=== PATIENT | female | born 1945 | race Caucasian/White ===

== ENCOUNTER 2017-11-18 11:27 | Day surgery (SDC) | payer OTHER ==
[~2017-11-18] VITALS: Ht 162.6 cm; Wt 69.9 kg
[~2017-11-18 11:27] MED LIST: ALBU90OI61 INH; ALPR.25 PO; Budeprion Xl300 MG PO; CENTRUM SILVER1 EAC2 PO; COMBIVENT RESPIM4 GM INH; ERGO400 PO; ESOM20 PO; FISH1000 PO; FLUSAL2505 INH; GABA300; L-LYSINE500 MG PO; LEVSOD100 PO; METO10; METO10 PO; OMEG1CAP30 PO; PARO20 PO; PROBIOTIC1 EAC1 PO; VICODIN 5-3001 EACH PO
[2017-11-18] MEDS ORDERED: COMBIVENT RESPIM4 GM INH (15:38)
[2017-11-18] MEDS ORDERED: GABA300 PO (15:39)
== END 2017-11-18 14:13 | disposition home or self-care (01) ==
LOC: ORSCSDS 11:27
PROVIDERS: Ophthalmology
PROC: 08RJ3JZ Replacement of Right Lens with Synthetic Substitute, Percutaneous Approach (ICD-10-PCS; principal; 2017-11-18 13:00)
DX: H25.11 Age-related nuclear cataract, right eye (principal); I10 Essential (primary) hypertension; J44.9 Chronic obstructive pulmonary disease, unspecified; K21.9 Gastro-esophageal reflux disease without esophagitis; F17.210 Nicotine dependence, cigarettes, uncomplicated; Z79.899 Other long term (current) drug therapy
CPT/HCPCS: J2250; J3010; J7040; V2632

== ENCOUNTER 2018-02-17 13:05 | Day surgery (SDC) | payer OTHER ==
[~2018-02-17] VITALS: Ht 162.6 cm; Wt 68.5 kg
[~2018-02-17 13:05] MED LIST changes: +GABA300 PO
== END 2018-02-17 16:05 | disposition home or self-care (01) ==
LOC: ORSCSDS 13:05
PROVIDERS: Ophthalmology
PROC: 08RK3JZ Replacement of Left Lens with Synthetic Substitute, Percutaneous Approach (ICD-10-PCS; principal; 2018-02-17 14:30)
DX: H25.12 Age-related nuclear cataract, left eye (principal); J44.9 Chronic obstructive pulmonary disease, unspecified; E03.9 Hypothyroidism, unspecified; Z79.899 Other long term (current) drug therapy; Z99.81 Dependence on supplemental oxygen
CPT/HCPCS: J2250; J3010; J7120; V2632

== ENCOUNTER 2019-03-17 10:59 | Day surgery (SDC) | payer OTHER ==
[~2019-03-17] VITALS: Ht 162.6 cm; Wt 65.7 kg
[~2019-03-17 10:59] MED LIST changes: +ALBU90OI INH; +BUPR150ERA PO; +FLUT1DIS5 INH; +HYDR1TAB94 PO; +OMEPRAZOLE20 MG PO; +PAXIL40 MG PO; +Premarin0.3 MG PO
--- NOTE | 2019-03-17 12:50 | NUR ---
03/17/19 1250 Zina Boyer DILITATION WITH NILDA 60 ALSO.
--- NOTE | 2019-03-17 13:22 | NUR ---
03/17/19 1322 Zina Boyer PT HAS WHEEZES T/O. PT PRESENTED TO PRE OP WITH THESE WHEEZES. DR. RYAN NOTIFIED. DR RYAN NOTIFIED. OK TO DISCHARGE PER DR RYAN LONG OXYGEN SATURATION IS STABLE. O2 AT 94% RA. VSS. OK TO DISCHARGE.
== END 2019-03-17 13:20 | disposition home or self-care (01) ==
LOC: ORSCSDS 10:59
PROVIDERS: Internal Medicine Gastroenterology
PROC: 0DB58ZX Excision of Esophagus, Via Natural or Artificial Opening Endoscopic, Diagnostic (ICD-10-PCS; principal; 2019-03-17 12:15)
PROC: 0D758ZZ Dilation of Esophagus, Via Natural or Artificial Opening Endoscopic (ICD-10-PCS; principal; 2019-03-17 12:15)
DX: R13.10 Dysphagia, unspecified (principal); K21.9 Gastro-esophageal reflux disease without esophagitis; K22.70 Barrett's esophagus without dysplasia; J44.9 Chronic obstructive pulmonary disease, unspecified; G47.33 Obstructive sleep apnea (adult) (pediatric); I10 Essential (primary) hypertension; Z87.891 Personal history of nicotine dependence; Z79.899 Other long term (current) drug therapy
CPT/HCPCS: 88305; J2704; J7120

== ENCOUNTER 2019-06-09 10:34 | Day surgery (SDC) | payer OTHER ==
[~2019-06-09] VITALS: Ht 162.6 cm; Wt 64.7 kg
== END 2019-06-09 13:11 | disposition home or self-care (01) ==
LOC: ORSCSDS 10:34
PROVIDERS: Internal Medicine Gastroenterology
PROC: 0DBK8ZX Excision of Ascending Colon, Via Natural or Artificial Opening Endoscopic, Diagnostic (ICD-10-PCS; principal; 2019-06-09 12:00)
DX: Z12.11 Encounter for screening for malignant neoplasm of colon (principal); Z86.010 Personal history of colon polyps; D12.2 Benign neoplasm of ascending colon; K57.30 Diverticulosis of large intestine without perforation or abscess without bleeding; K64.8 Other hemorrhoids; K64.4 Residual hemorrhoidal skin tags; I10 Essential (primary) hypertension; J44.9 Chronic obstructive pulmonary disease, unspecified; G47.33 Obstructive sleep apnea (adult) (pediatric); K21.9 Gastro-esophageal reflux disease without esophagitis; Z79.899 Other long term (current) drug therapy
CPT/HCPCS: 88305; J2250; J2704; J7120

== ENCOUNTER → 2020-05-28 | Outpatient (CLI) | payer OTHER ==
[2020-05-29 10:42] LABS: Candida species (DNA Probe) Negative (NEGATIVE); G. vaginalis (DNA Probe) Negative (NEGATIVE); T. vaginalis (DNA Probe) Negative (NEGATIVE)
== END | disposition home or self-care (01) ==
LOC: LAB SHORT 17:53 → LAB 17:53
PROVIDERS: Physician Assistant
DX: N89.8 Other specified noninflammatory disorders of vagina (principal)
CPT/HCPCS: 87480; 87510; 87660

== ENCOUNTER 2023-10-05 18:15 | Inpatient (IN) | payer MEDICARE ==
[~2023-10-05] VITALS: Ht 165.1 cm; Wt 64.5 kg
[2023-10-08 08:03] VITALS: BP 167/70
== END 2023-10-08 14:50 | disposition home health service (06) | DRG 871 ==
LOC: ER 18:15 → PCU 22:12 → MEDS 10-07 16:25
PROVIDERS: ADMIT Internal Medicine
PROC: 5A0935A Assistance with Respiratory Ventilation, Less than 24 Consecutive Hours, High Flow/Velocity Cannula (ICD-10-PCS; principal; 2023-10-05)
PROC: 3E03329 Introduction of Other Anti-infective into Peripheral Vein, Percutaneous Approach (ICD-10-PCS; 2023-10-05)
DX: A41.9 Sepsis, unspecified organism (principal); J18.9 Pneumonia, unspecified organism; J96.21 Acute and chronic respiratory failure with hypoxia; J96.22 Acute and chronic respiratory failure with hypercapnia; J44.1 Chronic obstructive pulmonary disease with (acute) exacerbation; J44.0 Chronic obstructive pulmonary disease with (acute) lower respiratory infection; R65.20 Severe sepsis without septic shock; F41.8 Other specified anxiety disorders; G62.9 Polyneuropathy, unspecified; E03.9 Hypothyroidism, unspecified; K21.9 Gastro-esophageal reflux disease without esophagitis; Z79.51 Long term (current) use of inhaled steroids; Z79.890 Hormone replacement therapy; Z98.1 Arthrodesis status; Z87.891 Personal history of nicotine dependence; Z99.81 Dependence on supplemental oxygen; Z88.0 Allergy status to penicillin

== ENCOUNTER 2024-05-31 11:43 | Inpatient (IN) | payer MEDICARE ==
[~2024-05-31] VITALS: Ht 152.4 cm; Wt 50.0 kg
[~2024-05-31 11:43] MED LIST changes: +ATOR40TA PO; +Acetaminophen650 M1 PO; +BUPR150ER PO; +CEFP200 PO; +DONEPEZIL HCL10 M1 PO; +ESTRADIOL1 EAC2 TOP; +HYDHCL25 PO; +LEVSOD75 PO; +LOSA50 PO; +Norco 5-325 Ta1 EACH PO; +VISBIOME 112.51 EACH PO
[2024-05-31] MEDS ORDERED: MethylPREDNISolone Sod Succ 125 MG Vial IV ONE (11:55)
[2024-05-31] MEDS ORDERED: Albuterol 2.5 MG/3 ML VIAL INH SCH (11:55)
[2024-05-31] MEDS ORDERED: FentaNYL Citrate 50 MCG/ML 2 ML Injection IV ONE ×2 (12:00→14:20)
[2024-05-31 12:08] LABS: Bicarbonate Venous 31.9 mmol/L (24.0-30.0); PCO2 Venous 70.1 mmHg (38-42); pH Blood Venous 7.34 (7.34-7.37)
[2024-05-31 12:09] LABS: BASOPHILS ABSOLUTE AUTO 0.04 K/mm3 (0.00-0.23); BASOPHILS PERCENT AUTO 0 % (0-2); EOSINOPHILS ABSOLUTE AUTO 0.34 K/mm3 (0.00-0.68); EOSINOPHILS PERCENT AUTO 2 % (0-6); Hematocrit 46.5 % (33.0-51.0); Hemoglobin 14.8 g/dL (11.5-16.0); IMMATURE GRAN ABSOLUTE AUTO 0.06 K/mm3 (0.00-0.10); IMMATURE GRAN PERCENT AUTO 0 % (0-1); LYMPHOCYTES ABSOLUTE AUTO 3.72 K/mm3 (0.84-5.20); LYMPHOCYTES PERCENT AUTO 25 % (21-46); MONOCYTES ABSOLUTE AUTO 1.19 K/mm3 (0.16-1.47); MONOCYTES PERCENT AUTO 8 % (4-13); Mean Corpuscular HGB 29.2 pg (26.0-34.0); Mean Corpuscular HGB Conc 31.8 g/dL (31.5-36.5); Mean Corpuscular Volume 92 fL (80-100); Mean Platelet Volume 9.9 fL (9.1-12.4); NEUTROPHILS ABSOLUTE AUTO 9.59 K/mm3 (1.96-9.15); NEUTROPHILS PERCENT AUTO 64 % (41-73); Platelet Count 337 K/mm3 (150-400); RDW Standard Deviation 51.1 fL (35.1-46.3); Red Blood Cell Count 5.07 M/mm3 (3.80-5.20); White Blood Cell Count 14.94 K/mm3 (4.00-11.30)
[2024-05-31 12:30] LABS: Albumin, Blood 3.4 g/dL (3.4-5.0); Albumin/Globulin Ratio 0.7 (0.8-1.8); Bilirubin, Total 0.3 mg/dL (0.1-1.0); Calcium, Blood 9.8 mg/dL (8.5-10.1); Creatinine, Blood 0.55 mg/dL (0.40-1.00); Globulin, Blood 5.1 g/dL (2.2-4.0); Potassium, Blood 3.5 mmol/L (3.5-5.5); Total Protein, Blood 8.5 g/dL (6.4-8.2)
[2024-05-31] MEDS ORDERED: Oseltamivir Phosphate 75 MG Cap PO ONE ×2 (12:55→21:00)
[2024-05-31] MEDS ORDERED: HYDROcodone 5-APAP 325 TAB PO PRN (15:20)
[2024-05-31] MEDS ORDERED: FLU VACC TS2024-25(6MOS UP)/PF 45 MCG/0.5 ML SYRINGE IM ONE (15:20)
[2024-05-31] MEDS ORDERED: Ondansetron HCl 2 MG / ML 2ML Vial IV PRN (15:25)
[2024-05-31] MEDS ORDERED: Polyethylene Glycol 3350 17 gm PO PRN (15:25)
[2024-05-31] MEDS ORDERED: CefTRIAXone Sodium 1,000 MG in NS 100 ML IV SCH (16:00)
[2024-05-31] MEDS ORDERED: MethylPREDNISolone Sod Succ 125 MG Vial IV SCH (16:00)
[2024-05-31 16:55] VITALS: BP 174/88
[2024-05-31] MEDS ORDERED: buPROPion HCL 150 MG TAB.SR.12H PO SCH (17:02)
--- NOTE | 2024-05-31 17:55 | NUR ---
ADMISSION NOTE: PATIENT ARRIVED AT THE UNIT VIA GURNEY AT 1655 ACCOMPANIED BY FAMILY. PATIENT TRANSFERRED ONTO BED AND SETTLED IN ROOM. SHE WAS ON NASAL CANNUAL ON 4 L AND SATURATING WELL AT 94% SPO2. PATIENT PLACED ON PUREWICK FOR OXYGEN CONSERVATION, CALL LIGHT PROVIDED, NO SIGNS OR SYMPTOMS OF DISTRESS. PLAN OF CARE ONGOING. CALL MADE TO DR. SHILOH BARTHOLOMEW CLEAR LIQUID DIET AND HE STATES THAT PATIENT MAY ADVANCE TOLERATED-TO REGULAR. PATIENT TOLERATED CLEAR LIQUID DINNER TRAY AT THIS TIME MAINTAIN OXYGEN ABOVE 90%.
--- NOTE | 2024-05-31 20:51 | NUR ---
ASSUMPTION OF CARE: ROLDANLOUIE CRISS NOT TOLERATING BIPAP, RT NOTIFIED TO HELP WITH MASK FITTING AND POSSIBLE NEED FOR CHANGE. SPOKE WITH PATIENT ABOUT INHALERS, MED CLAIM HISTORY SHOWED CRISTIAN HIGUERA, WILL INFORM RESDIENT WHEN HE STOPS BY. PATIENT IN NO ACUTE DISTRESS. A/O X 4. BIPAP SETTINGS OF 12/6 AT 40%. DENIES CHEST PAIN PRESSURE OR SOB. MILD SYSTOLIC HTN 150, IMPROVING FROM PREVIOUS 170'S. PATIENT ABLE TO REST, REPOSITIONED, TOLERATED MEDS PO WITH WATER. CRISS ON 3.5L. PUREWICK IN TO HELP WITH EXERTION DYSPNEA. PATIENT EDUCATED. BED ALARM FOR SAFETY. PLAN OF CARE CONTINUES.
[2024-05-31] MEDS ORDERED: Lactobacil 2-S.Thermo-Bifido 1 1 Cap PO SCH (21:00)
[2024-05-31] MEDS ORDERED: Donepezil HCl 5 MG Tab PO SCH (21:00)
[2024-05-31] MEDS ORDERED: Docusate Sodium/Senna 1 Tab PO SCH (21:00)
[2024-05-31] MEDS ORDERED: Gabapentin 300 MG Cap PO SCH (21:00)
[2024-05-31] MEDS ORDERED: Ipratropium/Albuterol SulF 2.5-0.5MG/3 ML Amp INH SCH (21:50)
[2024-05-31] MEDS ORDERED: Mometasone/Formoterol MDI 100/5 mcg 13 GM INH SCH (21:50)
[2024-05-31] MEDS ORDERED: Albuterol 2.5 MG/3 ML VIAL INH PRN (21:50)
[2024-05-31 22:56] VITALS: BP 158/85
[2024-06-01 03:39] VITALS: BP 158/75
[2024-06-01 04:12] LABS: Base Excess Venous 16.3 mmol/L; Bicarbonate Venous 37.2 mmol/L (24.0-30.0); PCO2 Venous 61.6 mmHg (38-42); pH Blood Venous 7.43 (7.34-7.37)
--- NOTE | 2024-06-01 05:15 | NUR ---
EOS: NO SIGNIFICANT CHANGES FORM ASSUMPTION, MINIMALLY WORE BIAP ~3-4 HOURS FOR THIS RN DUE TO DISCOMFORT. OVERALL APPEARS TO BE IMPROVING, ONLY CONCERN WOULD BE TO START AM [place] IF LABS ALLOW, SYSTOLICS IN THE 150'S ON MED REC NOT SCHEDULED OR IN MAR. AM LABS OBTAINED TO ADD ON, SHE ONLY HAD A VBG ORDERED. RESIDENT NOTIFIED OF VBG, AWAITING INSTRUCTIONS. NO OTHER CONCERNS STILL DENIES CHEST PAIN PRESSURE SPO2 >92%. PLAN OF CARE CONTINUES.
[2024-06-01 05:16] LABS: BASOPHILS ABSOLUTE AUTO 0.01 K/mm3 (0.00-0.23); BASOPHILS PERCENT AUTO 0 % (0-2); EOSINOPHILS PERCENT AUTO 0 % (0-6); Hematocrit 38.9 % (33.0-51.0); Hemoglobin 12.6 g/dL (11.5-16.0); IMMATURE GRAN ABSOLUTE AUTO 0.04 K/mm3 (0.00-0.10); IMMATURE GRAN PERCENT AUTO 1 % (0-1); LYMPHOCYTES ABSOLUTE AUTO 0.85 K/mm3 (0.84-5.20); LYMPHOCYTES PERCENT AUTO 11 % (21-46); MONOCYTES ABSOLUTE AUTO 0.27 K/mm3 (0.16-1.47); MONOCYTES PERCENT AUTO 4 % (4-13); Mean Corpuscular HGB 29.3 pg (26.0-34.0); Mean Corpuscular HGB Conc 32.4 g/dL (31.5-36.5); Mean Corpuscular Volume 91 fL (80-100); NEUTROPHILS ABSOLUTE AUTO 6.51 K/mm3 (1.96-9.15); NEUTROPHILS PERCENT AUTO 85 % (41-73); Platelet Count 247 K/mm3 (150-400); RDW Standard Deviation 49.7 fL (35.1-46.3); White Blood Cell Count 7.68 K/mm3 (4.00-11.30)
[2024-06-01 05:35] LABS: Bun/Creatinine Ratio 38.2 (12.0-20.0); Calcium, Blood 9.3 mg/dL (8.5-10.1); Creatinine, Blood 0.52 mg/dL (0.40-1.00); Potassium, Blood 3.6 mmol/L (3.5-5.5)
[2024-06-01] MEDS ORDERED: Levothyroxine Sodium 0.075 MG Tab PO SCH (06:00)
[2024-06-01] MEDS ORDERED: Omeprazole 20 MG CapCR PO SCH (06:00)
[2024-06-01 08:00] VITALS: BP 163/83
[2024-06-01] MEDS ORDERED: PARoxetine HCl 20 MG Tab PO SCH (09:00)
[2024-06-01] MEDS ORDERED: Oseltamvir Phosphate 30 MG Cap PO SCH (09:00)
[2024-06-01] MEDS ORDERED: Enoxaparin 30 MG/0.3 ML SYR SC SCH (09:00)
[2024-06-01] MEDS ORDERED: Cholecalciferol 1000 Unit Tablet (=25MCG) PO SCH (09:00)
[2024-06-01 11:48] VITALS: BP 164/79
--- NOTE | 2024-06-01 15:46 | NUR ---
CALLED AND GAVE REPORT TO TRUDI DESAI ON MEDICAL FOR PATIENT TO GO TO ROOM 342. ALSO CALLED DR. MATAMOROS ABOUT ORDERED PATIENT'S HOME BLOOD PRESSURE MEDICATIONS ADN A PRN. ALSO CALLED PATIENT'S DAUGHTER OLGA AND NOTIFIED HER OF TRANSFER.
[2024-06-01] MEDS ORDERED: HydrALAZINE HCl 20 MG / ML 1ML Vial IV PRN (15:50)
[2024-06-01 15:56] VITALS: BP 152/75
[2024-06-01] MEDS ORDERED: Losartan Potassium 25 MG Tab PO SCH (16:00)
[2024-06-01 17:15] VITALS: BP 152/78
--- NOTE | 2024-06-01 17:48 | NUR ---
PT TRANSFERRED TO MED FLOOR THIS AFTERNOON. PT TALKATIVE, ON 3L O2 AND TO INCRREASE TO 6L O2 DURING AMBULATION. PT DENIES PAIN AT THIS TIME. DAUGHTER AND SON IN LAW IN ROOM TO VISIT THIS FORREST. NO NEW CONCERNS AT THIS TIME. BED IN LOW POSITION, CALL LITE IN REACH, CALLS APPROP
[2024-06-01 21:04] VITALS: BP 123/65
[2024-06-02 05:13] VITALS: BP 134/63
--- NOTE | 2024-06-02 06:04 | NUR ---
SHIFT SUMMARY PT ALERT AND ORIENTED TIMES 4 . ONE PERSON TRANSFER ASSIST. PT IS ON 3L O2. PT HAS NO SKIN ISSUES. PT IS COOPERATIVE WITH CARE. BED IN LOW POSITION, CALL LIGHT WITHIN REACH, RAILS TIMES 2.
[2024-06-02 07:16] VITALS: BP 139/60
[2024-06-02] MEDS ORDERED: MethylPREDNISolone Sod Succ 125 MG Vial IV SCH (09:00)
[2024-06-02 15:33] VITALS: BP 148/82
--- NOTE | 2024-06-02 18:40 | NUR ---
PATIENT IS ALERT AND ORIENTED AND COOPERATIVE WITH CARE. PLAN IS TO STAY ANOTHER NIGHT BECUASE HER OXYGEN NEEDS WERE HIGH DURING THE HOME O2 EVAL THIS AFTERNOON. 3L AT REST AND 6L AT 89% WITH EXERTION. PATIENT HAS BEEN RESTING BETWEEN MEALS. BM TODAY. UP TO THE BATHROOM. WILL CONTINUE TO MONITOR
[2024-06-02 20:21] VITALS: BP 134/63
--- NOTE | 2024-06-03 03:44 | NUR ---
SHIFT SUMM: PT IS A 79 YO FULL CODE WHO WAS ADMITTED FOR COPD EXACERBATION. PT IS IN ISO FOR INFLUENZA A AND IS A&OX4. PT USES 3L OF OXYGEN AT BASELINE BUT 6L ON EXERTION. PT IS A 1 PERSON SBA TO THE BATHROOM. PT HAS BEEN WORRIED ABOUT HER WHO LIVES AT [facility] AND IS HOPING TO GO HOME TODAY. PT HAS BEEN RESTING MOST OF THE SHIFT W/CALL LIGHT IN REACH AND IS COOPERATIVE W/CARE.
[2024-06-03 05:18] VITALS: BP 161/71
[2024-06-03 07:24] VITALS: BP 171/76
[2024-06-03] MEDS ORDERED: PredniSONE 20 MG Tab PO SCH (09:00)
[2024-06-03] MEDS ORDERED: DULERA 100 MCG/13 GM INH (12:26)
[2024-06-03] MEDS ORDERED: Prednisone20 MG PO (12:28)
[2024-06-03] MEDS ORDERED: DOXY100 PO (12:29)
--- NOTE | 2024-06-03 12:47 | NUR ---
DISCHARGE PT AOX4, COOPERATIVE, ABLE TO MAKE NEEDS KNOWN. ON 3L O2, INCREASE TO 6L O2 UPON EXERTION. THE RN CONTACTED [phone] 10 MINUTES BEFORE PT DISCHARGE FOR HOME O2 NEEDS. RECIPIENTS WERE VERY NICE AND SAID EVERYTHING WILL BE TAKEN CARE OF. THIS RN WENT OVER DISCHARGE INFORMATION WITH PT AND SON, SON TOOK DISCHARGE PAPERWORK WITH "PT BELONGING" BAD WITH OTHER BELONGING. JOHNY WHITMORE TRANSPORTED PT VIA WHEELCHAIR DOWN TO PT ENTRANCE. IV DC'D BY JOHNY WHITMORE.
== END 2024-06-03 12:47 | disposition home health service (06) | DRG 193 ==
LOC: ER 11:43 → ERHOLD 11:44 → MEDS 11:45 → PCU 11:45 → MEDS 06-01 16:17
PROVIDERS: Emergency Medicine; Internal Medicine; Physician Assistant; Student in an Organized Health Care Education/Training Program; ADMIT Internal Medicine
PROC: 5A09357 Assistance with Respiratory Ventilation, Less than 24 Consecutive Hours, Continuous Positive Airway Pressure (ICD-10-PCS; principal; 2024-05-31)
DX: J10.00 Influenza due to other identified influenza virus with unspecified type of pneumonia (principal); J96.21 Acute and chronic respiratory failure with hypoxia; J96.22 Acute and chronic respiratory failure with hypercapnia; J44.1 Chronic obstructive pulmonary disease with (acute) exacerbation; J44.0 Chronic obstructive pulmonary disease with (acute) lower respiratory infection; I10 Essential (primary) hypertension; G31.84 Mild cognitive impairment of uncertain or unknown etiology; G89.29 Other chronic pain; Z88.1 Allergy status to other antibiotic agents; F41.8 Other specified anxiety disorders; E03.9 Hypothyroidism, unspecified; G62.9 Polyneuropathy, unspecified; K22.70 Barrett's esophagus without dysplasia; Z90.710 Acquired absence of both cervix and uterus; Z98.1 Arthrodesis status; Z98.891 History of uterine scar from previous surgery; Z87.891 Personal history of nicotine dependence; Z79.899 Other long term (current) drug therapy; Z79.890 Hormone replacement therapy; Z79.891 Long term (current) use of opiate analgesic; Z90.49 Acquired absence of other specified parts of digestive tract; Z98.42 Cataract extraction status, left eye; Z98.41 Cataract extraction status, right eye
CPT/HCPCS: 36415; 71045; 80048; 80053; 82803; 83880; 84484; 85025; 93005; 93010; 94640; 94644; 94660; 94664; 94760; 94761; 94762; 96374; 96375; 96376; 97110; 97116; 97161; 99285-25; A9270; J0696; J1650; J2919; J3010; J7512

== ENCOUNTER → 2025-03-21 | Outpatient (CLI) | payer MEDICARE ==
[~2025-03-21] MED LIST changes: +DOXY100 PO; +DULERA 100 MCG/13 GM INH; +Prednisone20 MG PO
== END ==
LOC: LAB 12:27 → LAB SHORT 12:27
DX: R41.0 Disorientation, unspecified (principal)
CPT/HCPCS: 87086

== ENCOUNTER 2025-03-29 15:57 | Inpatient (IN) | payer MEDICARE ==
[~2025-03-29] VITALS: Ht 160 cm; Wt 45.6 kg
[2025-03-29] MEDS ORDERED: Ipratropium/Albuterol SulF 2.5-0.5MG/3 ML Amp INH ONE (16:20)
[2025-03-29] MEDS ORDERED: Albuterol 2.5 MG/3 ML VIAL INH SCH ×2 (16:25→18:10)
[2025-03-29 16:26] LABS: pH Blood Venous 7.41 (7.34-7.37)
[2025-03-29 16:38] LABS: BASOPHILS ABSOLUTE AUTO 0.02 K/mm3 (0.00-0.23); BASOPHILS PERCENT AUTO 0 % (0-2); EOSINOPHILS ABSOLUTE AUTO 0.12 K/mm3 (0.00-0.68); EOSINOPHILS PERCENT AUTO 1 % (0-6); Hematocrit 32.1 % (33.0-51.0); Hemoglobin 9.6 g/dL (11.5-16.0); IMMATURE GRAN ABSOLUTE AUTO 0.03 K/mm3 (0.00-0.10); IMMATURE GRAN PERCENT AUTO 0 % (0-1); LYMPHOCYTES ABSOLUTE AUTO 1.76 K/mm3 (0.84-5.20); LYMPHOCYTES PERCENT AUTO 21 % (21-46); MONOCYTES ABSOLUTE AUTO 0.80 K/mm3 (0.16-1.47); MONOCYTES PERCENT AUTO 10 % (4-13); Mean Corpuscular HGB Conc 29.9 g/dL (31.5-36.5); Mean Corpuscular Volume 98 fL (80-100); NEUTROPHILS ABSOLUTE AUTO 5.65 K/mm3 (1.96-9.15); NEUTROPHILS PERCENT AUTO 68 % (41-73); NRBC ABSOLUTE 0.00 K/mm3 (0.00-0.02); NRBC Auto 0.0 /100 WBC (0.0-0.2); Platelet Count 219 K/mm3 (150-400); RDW Coefficient Variation 14.2 % (11.7-14.2); RDW Standard Deviation 51.2 fL (35.1-46.3)
[2025-03-29 17:06] LABS: Magnesium, Blood 2.1 mg/dL (1.6-2.4)
[2025-03-29 17:20] LABS: Source, Urine Clean Catch
[2025-03-29 17:21] LABS: Influenza A, PCR NEGATIVE (NEGATIVE); Influenza B, PCR NEGATIVE (NEGATIVE); Resp Syncytial Virus, PCR NEGATIVE (NEGATIVE); SARS-Cov-2 (COVID-19) PCR, MMC NEGATIVE (NEGATIVE)
[2025-03-29 17:28] LABS: Bilirubin, Urine Neg (Neg); Color, Urine Yellow (P-Yellow); Glucose Qualitative, Urine Neg (Neg); Ketones, Urine 1+ (Neg); Leukocyte Esterase, Urine 1+ (Neg); Protein, Urine 2+ (Neg); Specific Gravity, Urine 1.015 (1.003-1.022); Urobilinogen, Urine NORM (Normal)
[2025-03-29 17:28] LABS: Alanine Aminotransfer (ALT/SGP 48 U/L (12-78); Albumin, Blood 3.0 g/dL (3.4-5.0); Albumin/Globulin Ratio 0.9 (0.8-1.8); Aspartate Aminotrans (AST/SGOT 32 U/L (12-37); Bilirubin, Total 0.2 mg/dL (0.1-1.0); Blood Urea Nitrogen 18 mg/dL (8-24); Calcium, Blood 9.2 mg/dL (8.5-10.1); Chloride, Blood 91 mmol/L (98-108); Creatinine, Blood 0.48 mg/dL (0.40-1.00); Globulin, Blood 3.3 g/dL (2.2-4.0); Glucose, Blood 107 mg/dL (70-99); Potassium, Blood 3.9 mmol/L (3.5-5.5); Sodium, Blood 139 mmol/L (136-145); Total Protein, Blood 6.3 g/dL (6.4-8.2)
[2025-03-29 17:29] LABS: Anion Gap Unable to Calculate mmol/L (3-11)
[2025-03-29 17:30] LABS: CO2, Blood >45 mmol/L (21-32)
[2025-03-29 17:42] LABS: Red Blood Cells, Urine 25-50 /hpf (0-2)
[2025-03-29] MEDS ORDERED: NS 250 ML IV SCH (18:10)
[2025-03-29] MEDS ORDERED: LORazepam 2 MG/ML 1ML Injection IV PRN (19:25)
[2025-03-29] MEDS ORDERED: Ipratropium/Albuterol SulF 2.5-0.5MG/3 ML Amp INH SCH (19:25)
[2025-03-29] MEDS ORDERED: Ondansetron HCl 2 MG / ML 2ML Vial IV PRN (19:30)
[2025-03-29] MEDS ORDERED: FLU VACC TS2025(65UP)/MF59C/PF 45 MCG/0.5 ML SYRINGE IM SCH (19:30)
[2025-03-29] MEDS ORDERED: NS 1,000 ML IV SCH (19:30)
[2025-03-29] MEDS ORDERED: Albuterol 2.5 MG/3 ML VIAL INH PRN (19:30)
[2025-03-29] MEDS ORDERED: Ondansetron HCl 2 MG / ML 2ML Vial IV ONE (20:00)
[2025-03-29] MEDS ORDERED: CefTRIAXone Sodium 1,000 MG in NS 100 ML IV SCH (20:00)
[2025-03-29] MEDS ORDERED: Metoclopramide HCl 5MG / ML 2ML Vial IV ONE (20:00)
[2025-03-29] MEDS ORDERED: ATOR40TA PO (20:20)
[2025-03-29] MEDS ORDERED: HYDHCL25 PO (20:21)
[2025-03-29 20:51] VITALS: BP 149/67
[2025-03-29] MEDS ORDERED: Lactobacil 2-S.Thermo-Bifido 1 1 Cap PO SCH (21:00)
[2025-03-29 21:09] LABS: pH Blood Venous 7.54 (7.34-7.37)
[2025-03-29 23:14] VITALS: BP 143/59
--- NOTE | 2025-03-30 01:59 | NUR ---
LATE ENTRY ASSUMPTION OF CARE REPORT RECIEVED FROM ANJANA DESAI. PT ARRIVED TO PCU AROUND 2050. PT WAS SLID FROM [facility] TO PCU BED. PT ALERT, ABLE TO ANSWER ORITNATION QUESTIONS, BUT VERY CONFUSED. HR IN THE 70'S, SR. SHE DENIES ANY CP/PRESSURE, NUMB/TINGLING, SBP STABLE. SpO2 >92% ON 4L VIA NC, PER PT 4L IS BASELINE FOR HER. SHE DENIES ANY SOB AT THIS TIME BUT DOES HAVE SOME WITH EXERTION. BREATHING EVEN AND UNLABORED. PUREWICK IN PLACE FOR INCONTINCE. PT RESTING IN BED AT THIS TIME. CALL LIGHT IN REACH.
[2025-03-30 03:31] VITALS: BP 152/65
[2025-03-30 03:53] LABS: pH Blood Venous 7.50 (7.34-7.37)
[2025-03-30 03:54] LABS: BASOPHILS ABSOLUTE AUTO 0.00 K/mm3 (0.00-0.23); BASOPHILS PERCENT AUTO 0 % (0-2); EOSINOPHILS ABSOLUTE AUTO 0.00 K/mm3 (0.00-0.68); EOSINOPHILS PERCENT AUTO 0 % (0-6); Hematocrit 34.1 % (33.0-51.0); Hemoglobin 10.3 g/dL (11.5-16.0); IMMATURE GRAN ABSOLUTE AUTO 0.02 K/mm3 (0.00-0.10); IMMATURE GRAN PERCENT AUTO 0 % (0-1); LYMPHOCYTES ABSOLUTE AUTO 0.52 K/mm3 (0.84-5.20); LYMPHOCYTES PERCENT AUTO 10 % (21-46); MONOCYTES ABSOLUTE AUTO 0.04 K/mm3 (0.16-1.47); MONOCYTES PERCENT AUTO 1 % (4-13); Mean Corpuscular HGB Conc 30.2 g/dL (31.5-36.5); Mean Corpuscular Volume 97 fL (80-100); NEUTROPHILS ABSOLUTE AUTO 4.43 K/mm3 (1.96-9.15); NEUTROPHILS PERCENT AUTO 88 % (41-73); NRBC ABSOLUTE 0.00 K/mm3 (0.00-0.02); NRBC Auto 0.0 /100 WBC (0.0-0.2); Platelet Count 201 K/mm3 (150-400); RDW Coefficient Variation 13.9 % (11.7-14.2); RDW Standard Deviation 49.8 fL (35.1-46.3)
[2025-03-30 04:18] LABS: Anion Gap 5.0 mmol/L (3-11); Blood Urea Nitrogen 15.0 mg/dL (8-24); CO2, Blood 43.0 mmol/L (21-32); Calcium, Blood 9.1 mg/dL (8.5-10.1); Chloride, Blood 92.0 mmol/L (98-108); Creatinine, Blood 0.4 mg/dL (0.40-1.00); Glucose, Blood 248.0 mg/dL (70-99); Magnesium, Blood 2.0 mg/dL (1.6-2.4); Potassium, Blood 3.9 mmol/L (3.5-5.5); Sodium, Blood 136.0 mmol/L (136-145)
--- NOTE | 2025-03-30 06:25 | NUR ---
SHIFT SUMMARY PT ALERT, ANSWERS ALL ORIENTATION QUESTIONS APPROPRIATELY BUT IS CONFUSED AT TIMES. PER REPORT FROM ER FAMILY STATES PT CONFUSED AT BASELINE. BED ALARM ON. HR IN THE 70'S, SR. SHE DENIES ANY CP/PRESSURE, NUMB/TINGLING, SBP STABLE. SpO2 >92% ON 4L VIA NC. PER PT 4L IS BASELINE FOR HER. DURING NIGHT PT DID TAKE NC OFF AND DESATED TO LOW 80'S, AFTER PLACING PT BACK ON NC SHE TOOK AWHILE TO RECOVER. SHE DENIES ANY SOB AT THIS TIME. PT HAS PUREWICK IN PLACE, INCONTINENT OF URINE. PT IS RESTING IN BED AT THIS TIME. CALL LIGHT IN REACH. WILL MONITOR PT AND REPORT TO ONCOMING RN.
[2025-03-30] MEDS ORDERED: Formoterol/Mometasone MDI 5/100 mcg 13 GM INH SCH (07:55)
[2025-03-30 08:38] VITALS: BP 157/69
[2025-03-30] MEDS ORDERED: Enoxaparin 30 MG/0.3 ML SYR SC SCH (09:00)
[2025-03-30] MEDS ORDERED: Insulin Human Lispro 100 Units/ML 3ML Syringe SC SCH (11:30)
[2025-03-30] MEDS ORDERED: Magnesium Hydroxide Conc 10 ML UDC PO PRN (11:55)
[2025-03-30 12:57] VITALS: BP 163/77
[2025-03-30 15:20] VITALS: BP 157/89
--- NOTE | 2025-03-30 15:45 | NUR ---
MET WITH PATIENT AND HER DAUGHTER TO DISCUSS POLST. PROVIDER REVIEWED OPTIONS THIS AM. FILLED OUT A POLST FORM REFLECTING DNR AND LIMITED INTERVENTIONS. REVIEWED AND SIGNED BY PROVIDER.
--- NOTE | 2025-03-30 18:45 | NUR ---
SHIFT SUMMARY PT IS A&O X 3 W/ FREQUENT BOUTS OF CONFUSION. FAMILY STATES THIS IS HER BASELINE. PT REMAINS ON BEDREST AT THIS TIME DUE TO WEAKNESS AND RECENT FALL AT HOME. CURRENTLY ON 3L O2 NC AND HAS REQUIRED TITRATION FROM 1-5. ON ONE OCCASION SHE GOT HERSELF TO THE BEDSIDE AND DESATTED TO LOW 80s REQUIRING INCREASE TO THE 5L UNTIL SHE WAS ABLE TO TITRATE TO 3, WHICH SHE IS CURRENTLY ON. PT AND FAMILY STATE THAT SHE CINSTANTLY USES 4L AT HOME. HR IN 70-80s W/ STABLE BPs, MAP >65. PUREWICK IN PLACE W/ CONTINUOUS LOW WALL SUCTION. PT ROUNDED ON BY DR. KELLOGG WHO DISCUSSED CODE STATUS W/ HER, CHANGED TO DNR AT PT'S WISHES, ORDER IN CHART AND BRACELET IN PLACE. FAMILY HAS BEEN AT BEDSIDE AND UPDATED ON CARE. SEE NOTES FOR UPDATES.
[2025-03-30 19:47] VITALS: BP 155/73
[2025-03-30 23:19] VITALS: BP 157/74
[2025-03-31 04:04] VITALS: BP 139/71
[2025-03-31 04:05] LABS: BASOPHILS ABSOLUTE AUTO 0.01 K/mm3 (0.00-0.23); BASOPHILS PERCENT AUTO 0 % (0-2); EOSINOPHILS ABSOLUTE AUTO 0.00 K/mm3 (0.00-0.68); EOSINOPHILS PERCENT AUTO 0 % (0-6); Hematocrit 30.7 % (33.0-51.0); Hemoglobin 9.5 g/dL (11.5-16.0); IMMATURE GRAN ABSOLUTE AUTO 0.04 K/mm3 (0.00-0.10); IMMATURE GRAN PERCENT AUTO 0 % (0-1); LYMPHOCYTES ABSOLUTE AUTO 0.66 K/mm3 (0.84-5.20); LYMPHOCYTES PERCENT AUTO 7 % (21-46); MONOCYTES ABSOLUTE AUTO 0.19 K/mm3 (0.16-1.47); MONOCYTES PERCENT AUTO 2 % (4-13); Mean Corpuscular HGB Conc 30.9 g/dL (31.5-36.5); Mean Corpuscular Volume 93 fL (80-100); NEUTROPHILS ABSOLUTE AUTO 8.65 K/mm3 (1.96-9.15); NEUTROPHILS PERCENT AUTO 91 % (41-73); NRBC ABSOLUTE 0.00 K/mm3 (0.00-0.02); NRBC Auto 0.0 /100 WBC (0.0-0.2); Platelet Count 218 K/mm3 (150-400); RDW Coefficient Variation 14.5 % (11.7-14.2); RDW Standard Deviation 49.9 fL (35.1-46.3)
[2025-03-31 04:32] LABS: Anion Gap 2.0 mmol/L (3-11); Blood Urea Nitrogen 18.0 mg/dL (8-24); CO2, Blood 42.0 mmol/L (21-32); Calcium, Blood 9.0 mg/dL (8.5-10.1); Chloride, Blood 99.0 mmol/L (98-108); Creatinine, Blood 0.37 mg/dL (0.40-1.00); Glucose, Blood 131.0 mg/dL (70-99); Potassium, Blood 3.7 mmol/L (3.5-5.5); Sodium, Blood 139.0 mmol/L (136-145)
--- NOTE | 2025-03-31 04:43 | NUR ---
ASSUMED CARE OF PT AT 1900. PT AXOX3 BUT DOES HAVE INTERMITENT CONFUSION/ FORGETFULNESS. ABLE TO USE CALL LIGHT APPROPRIATELY. ON 3L NC TO MAINTAIN O2>92%. PT DOES HAVE DYSPNEA WITH EXERTION. PUREWICK ON AND IN PLACE. NS RUNNING AT 75ML/HR. BED ALARM ON FOR SAEFTY. BED IN LOWEST POSITION AND CALL LIGHT WITHIN REACH.
[2025-03-31 08:30] VITALS: BP 144/65
[2025-03-31] MEDS ORDERED: Multivitamins 1 Tab PO SCH (09:00)
[2025-03-31 12:37] VITALS: BP 154/68
[2025-03-31 16:14] VITALS: BP 164/89
--- NOTE | 2025-03-31 18:02 | NUR ---
SHIFT SUMMARY PT A&0 X 3-4. BEDREST IS MAINTAINED DUE TO SOB W/ EXERTION AND OXYGEN DEMAND. Q2 REPOSITIONING PRVIDED. PT WAS ABLE TO GET UP TO THE SIDE OF THE BED WITH PHYSICAL THERAPY THIS SHIFT BUT COULD ONLY TOLERATE IT FOR 2 MINUTES BEFORE RETURNING TO LYING BACK IN BED. SHE HAS BEEN TITRATED FROM 1-4L BUT IS CURRENTLY ON 2L AND HAS BEEN FOR SEVERAL HOURS. SATTING AT 95% AT THIS TIME. PT HAS BEEN ADVANCED TO MEDICAL STATUS, NO TELE BY DR. KELLOGG THIS SHIFT. PRIOR TO DC OF TELE, SHE WAS MAINTAINING SR 80-90s. PUREIWCK IN PLACE, HAS BEEN CHANGED THIS SHIFT. PT SITTING IN BED EATING DINNER. SEE NOTES FOR UPDATES.
[2025-03-31 20:39] VITALS: BP 178/79
[2025-03-31 21:03] VITALS: BP 165/89
[2025-04-01] VITALS (7 sets, daily range): BP systolic 131–175; BP diastolic 69–82
[2025-04-01 04:29] LABS: BASOPHILS ABSOLUTE AUTO 0.00 K/mm3 (0.00-0.23); BASOPHILS PERCENT AUTO 0 % (0-2); EOSINOPHILS ABSOLUTE AUTO 0.00 K/mm3 (0.00-0.68); EOSINOPHILS PERCENT AUTO 0 % (0-6); Hematocrit 32.9 % (33.0-51.0); Hemoglobin 10.4 g/dL (11.5-16.0); IMMATURE GRAN ABSOLUTE AUTO 0.07 K/mm3 (0.00-0.10); IMMATURE GRAN PERCENT AUTO 1 % (0-1); LYMPHOCYTES ABSOLUTE AUTO 0.82 K/mm3 (0.84-5.20); LYMPHOCYTES PERCENT AUTO 8 % (21-46); MONOCYTES ABSOLUTE AUTO 0.44 K/mm3 (0.16-1.47); MONOCYTES PERCENT AUTO 4 % (4-13); Mean Corpuscular HGB Conc 31.6 g/dL (31.5-36.5); Mean Corpuscular Volume 93 fL (80-100); NEUTROPHILS ABSOLUTE AUTO 9.59 K/mm3 (1.96-9.15); NEUTROPHILS PERCENT AUTO 88 % (41-73); NRBC ABSOLUTE 0.00 K/mm3 (0.00-0.02); NRBC Auto 0.0 /100 WBC (0.0-0.2); Platelet Count 263 K/mm3 (150-400); RDW Coefficient Variation 14.9 % (11.7-14.2); RDW Standard Deviation 50.2 fL (35.1-46.3)
[2025-04-01 04:59] LABS: Anion Gap 4.0 mmol/L (3-11); Blood Urea Nitrogen 23.0 mg/dL (8-24); CO2, Blood 41.0 mmol/L (21-32); Calcium, Blood 9.2 mg/dL (8.5-10.1); Chloride, Blood 97.0 mmol/L (98-108); Creatinine, Blood 0.43 mg/dL (0.40-1.00); Glucose, Blood 120.0 mg/dL (70-99); Potassium, Blood 4.1 mmol/L (3.5-5.5); Sodium, Blood 138.0 mmol/L (136-145)
--- NOTE | 2025-04-01 06:37 | NUR ---
SHIFT SUMMARY: PT A&OX4 CALM AND COOPERATIVE. ABLE TO MAKE NEEDS KNOWN AND CALLS APPROPRIATELY. SBP 140S-170S. PT MAINTAINING >90% ON 1-2L NC. AUDIBLE WHEEZING HEARD AND EXERTIONAL SOB WHILE MOVING IN BED. BREATHING TREATMENT PROVIDED BY RT AND PT REPORTS IMPROVEMENT OF SOB AND WHEEZING. PT REMAINS BEDREST D/T OXYGEN DEMANDS. Q2 REPOSITIONING PROVIDED. WICKING SYSTEM IN PLACE. ADEQUATE URINE OUTPUT. BED ALARM IS ON. BED IS LOW AND LOCKED. CALL LIGHT WITHIN REACH. CONTINUE WITH CURRENT PLAN OF CARE.
[2025-04-01] MEDS ORDERED: Ketorolac Tromethamine 30mg Vial IV ONE (12:00)
[2025-04-01] MEDS ORDERED: Ketorolac Tromethamine 30mg Vial IM ONE (12:00)
[2025-04-01] MEDS ORDERED: Albuterol 2.5 MG/3 ML VIAL INH SCH (16:10)
--- NOTE | 2025-04-01 18:25 | NUR ---
PT IS A&O X4 AT THIS TIME. SHE HAS BOUTS OF FORGETFULNESS AT BASELINE, BUT HAS NOT DISPLAED ANY SO FAR THIS SHIFT DESPITE HAVING IT IN MY LAST TWO SHIFTS WITH HER. SHE WAS ABLE TO GET UP AND TAKE A FEW STEPS IN THE ROOM TODAY ON TWO OCCASIONS WITH 1 PERSON ASSISTING. ONCE WITH OT, AND ONCE TO GET UP TO CHAIR FOR DINNER PER OT REQUEST. PT ATTEMPTED TO GET UP TO VANESSA FOR LUNCH BUT WAS FEELING AN INCREASE IN SOB AND WHEEZING WAS WORSE AT THE TIME, SO SHE SAT AT THE SIDE OF THE BED. AT THIS TIME, SHE HAD BEEN RECIEVING A BREATHING TREATMENT THAT WAS STOPPED EARLY BY RT DUE TO SEEMINGLY MAKING THE PATIENT'S SYMPTOMS WORSEN INSTEAD OF IMPROVING. DESPITE THIS EPISODE OF INCREASED SOB, PT HAS REMAINED ON 1L O2 NC THROUGHOUT SHIFT AND MAINTAINED SATS OVER 90%. BPs WERE INCREASINGLY ELEVATED FOR A PEIOD OF TIME THIS AFTERNOON BUT PT WAS MEDICATED PER EMAR AND BPS RESPONDED WELL. MAPS REMAIN > 65. PUREWICK IS IN PLACE AND DRAINING TO WALL SUCTION. NO BM, BUT PT IS RECIEVING MEDICATIONS PER EMAR TO ASSIST. FAMILY HAS BEEN AT BEDSIDE AND UPDATED ON CARE. SEE NOTES FOR UPDATES.
[2025-04-02 00:21] VITALS: BP 146/73
[2025-04-02 03:31] VITALS: BP 174/75
[2025-04-02 03:39] LABS: BASOPHILS ABSOLUTE AUTO 0.01 K/mm3 (0.00-0.23); BASOPHILS PERCENT AUTO 0 % (0-2); EOSINOPHILS ABSOLUTE AUTO 0.00 K/mm3 (0.00-0.68); EOSINOPHILS PERCENT AUTO 0 % (0-6); Hematocrit 35.1 % (33.0-51.0); Hemoglobin 11.1 g/dL (11.5-16.0); IMMATURE GRAN ABSOLUTE AUTO 0.02 K/mm3 (0.00-0.10); IMMATURE GRAN PERCENT AUTO 0 % (0-1); LYMPHOCYTES ABSOLUTE AUTO 0.72 K/mm3 (0.84-5.20); LYMPHOCYTES PERCENT AUTO 9 % (21-46); MONOCYTES ABSOLUTE AUTO 0.23 K/mm3 (0.16-1.47); MONOCYTES PERCENT AUTO 3 % (4-13); Mean Corpuscular HGB Conc 31.6 g/dL (31.5-36.5); Mean Corpuscular Volume 93 fL (80-100); NEUTROPHILS ABSOLUTE AUTO 7.25 K/mm3 (1.96-9.15); NEUTROPHILS PERCENT AUTO 88 % (41-73); NRBC ABSOLUTE 0.00 K/mm3 (0.00-0.02); NRBC Auto 0.0 /100 WBC (0.0-0.2); Platelet Count 243 K/mm3 (150-400); RDW Coefficient Variation 15.0 % (11.7-14.2); RDW Standard Deviation 50.7 fL (35.1-46.3)
[2025-04-02 03:58] LABS: Anion Gap 4.0 mmol/L (3-11); Blood Urea Nitrogen 32.0 mg/dL (8-24); CO2, Blood 41.0 mmol/L (21-32); Calcium, Blood 9.2 mg/dL (8.5-10.1); Chloride, Blood 96.0 mmol/L (98-108); Creatinine, Blood 0.4 mg/dL (0.40-1.00); Glucose, Blood 126.0 mg/dL (70-99); Potassium, Blood 4.4 mmol/L (3.5-5.5); Sodium, Blood 137.0 mmol/L (136-145)
--- NOTE | 2025-04-02 05:37 | NUR ---
NO ACUTE EVENTS OVERNIGHT. PT'S BP WAS ELEVATED. PT CALLED APPROPRIATELY. SPO2 MAINTAINED >92% ON 1L VIA NASAL CANNULA. PURWICK IN PLACE. BED LOCKED IN LOWEST POSITION. CALL LIGHT WITHIN REACH.
[2025-04-02 07:48] VITALS: BP 156/68
[2025-04-02] MEDS ORDERED: Enoxaparin 40 MG/0.4 ML SYR SC SCH (09:00)
[2025-04-02 17:21] VITALS: BP 144/81
--- NOTE | 2025-04-02 17:22 | NUR ---
SHIFT SUMMARY: PT A&OX4. FOLLOWS COMMANDS AND MAKES NEEDS KNOWN TO STAFF. PT WAS ABLE TO GET UP TO THE CHAIR AND BSC. PT HAS BEEN TOLERATING 1L NC ALL DAY. THIS AM PT WAS RECIEVEING A BREATHING TX AND BECAME SOB, HYPOXIC AT 81% AND WHEEZY. ALL SYMPTOMS RESOLVED SHORTLY AFTER TURNING OFF BREATHING TX AND TURNING UP O2 TO 4 L. PROVIDER NOTIFIED. CARE MANAGEMENT MET WITH FAMILY AND PT TO TALK ABOUT DISCHARGE PLAN. PLAN TO FOLLOW UP TOMMORROW AFTER PT AND FAMILY HAVE HAD TIME TO THINK AND TALK. NO SIGNIFICANT EVENTS HAPPENED DURING THIS SHIFT. WILL CONTINUE TO CARE FOR PT TILL END OF SHIFT.
[2025-04-02 19:58] VITALS: BP 134/51
--- NOTE | 2025-04-02 21:56 | NUR ---
ASSUMED CARE OF PATIENT AT 1900. PT A/O X 4, SPEAKING IN FULL SENTENCES AND IS COOOPERATIVE WITH CARE. HR IN 80s, BP ELEVATED, DENIES CHEST PAIN/PRESSURE. DIMINISHED WHEEZING HEARD IN [place], OTHERWISE CLEAR. DENIES SOB AT REST. SATS >90% ON 1L NC. PT SBA TO BATHROOM. SCATTERED BRUSING T/O BUE, BRUISE ON FOREHEAR FROM GROUND LEVEL FALL AT HOME. PT LYING COMFORTABLY IN BED LOCKED IN LOWEST SETTING, CALL LIGHT IN REACH.
--- NOTE | 2025-04-02 22:08 | NUR ---
ASSUMED CARE OF PATIENT AT 1900. PATIENT A/O X 3, SPEAKING IN COMPLETE SENTENCES AND FORGETS LIMITATIONS. SR 70-80s, DENIES CHEST PAIN/PRESSURE. PATIENT SATS >95% ON ROOM AIR, LUNG SOUNDS CLEAR T/O. BOWEL TONES PRESENT IN ALL FOUR QUADRANTS. PATIENT IS SBA TO BATHROOM. PATIENT SITTING IN RECLINER AT THIS TIME, CALL LIGHT IN REACH.
[2025-04-03 00:15] VITALS: BP 158/79
[2025-04-03 03:47] VITALS: BP 147/64
[2025-04-03 04:11] LABS: Anion Gap 5.0 mmol/L (3-11); Blood Urea Nitrogen 28.0 mg/dL (8-24); CO2, Blood 39.0 mmol/L (21-32); Calcium, Blood 9.5 mg/dL (8.5-10.1); Chloride, Blood 96.0 mmol/L (98-108); Creatinine, Blood 0.47 mg/dL (0.40-1.00); Glucose, Blood 113.0 mg/dL (70-99); Potassium, Blood 4.3 mmol/L (3.5-5.5); Sodium, Blood 136.0 mmol/L (136-145)
--- NOTE | 2025-04-03 05:37 | NUR ---
SHIFT SUMMARY PATIENT EXPERIENCED X1 EPISODE OF SOB AMBUALTING TO BATHROOM, RECOVERED QUICKLY WITH 3L NC. TITRATED BACK DOWN TO 1L NC, SATS >90% AT REST. ALL OTHER VSS. PT CALLS APPROPRIATELY. BED IN LOWEST POSITION, CALL LIGHT WITHIN REACH.
[2025-04-03 06:29] VITALS: BP 187/110
[2025-04-03 07:22] VITALS: BP 170/90
[2025-04-03 07:45] VITALS: BP 170/75
[2025-04-03 15:15] VITALS: BP 159/77
[2025-04-03] MEDS ORDERED: VISBIOME 112.51 EACH PO (16:07)
[2025-04-03] MEDS ORDERED: LOSA50 PO (16:07)
[2025-04-03] MEDS ORDERED: ONE DAILY MUL400 MCG PO (16:08)
[2025-04-03] MEDS ORDERED: PRED20 PO (16:09)
[2025-04-03] MEDS ORDERED: B-1100 M1 PO (16:10)
--- NOTE | 2025-04-03 17:03 | NUR ---
SHIFT SUMMARY/DISCHARGE NOTE PT A/OX4, ONE ASSIST TO RESTROOM, AND PLEASANT. PT ON 1 L NC O2. PT'S O2 DESTATS TO LOW 80S W/ AMBULATION TO THE RESTROOM. O2 INCREASED TO 2 L WHEN PT RETURNED BACK TO HOSPITAL BED AND O2 RETURNED TO NORMAL SATURATION. DR. KELLOGG AT BEDSIDE THIS AM. PT TO DISCHARGE TODAY. CALL PLACED TO DAUGHTER, LISTED ON FILE. CARE MANAGEMENT INVOLVED W/ VAN TO SUPPLY PORTABLE O2 UPON DISCHARGE. DAUGHTER AT BEDSIDE AT 1640 TO BLOWER FEEDER DYED RAW STOCK PT. DISCHARGE PACKET AND EDUCATION PROVIDED TO FAMILY. PT LEFT VIA WHEELCHAIR W/ SENIOR VICE PRESIDENT AND CHIEF INFORMATION OFFICER IN STABLE CONDITION.
== END 2025-04-03 17:10 | disposition home health service (06) | DRG 189 ==
LOC: ER 15:57 → PCU 19:27 → MEDS 04-03 06:12 → ENPENDDIS 04-03 10:04 → MEDS 04-03 17:10
PROVIDERS: Nurse Practitioner Acute Care; Student in an Organized Health Care Education/Training Program; ADMIT Student in an Organized Health Care Education/Training Program
PROC: 5A09357 Assistance with Respiratory Ventilation, Less than 24 Consecutive Hours, Continuous Positive Airway Pressure (ICD-10-PCS; principal; 2025-03-29)
PROC: 3E03329 Introduction of Other Anti-infective into Peripheral Vein, Percutaneous Approach (ICD-10-PCS; 2025-03-29)
DX: J96.21 Acute and chronic respiratory failure with hypoxia (principal); G92.8 Other toxic encephalopathy; J44.1 Chronic obstructive pulmonary disease with (acute) exacerbation; E46 Unspecified protein-calorie malnutrition; Z68.1 Body mass index [BMI] 19.9 or less, adult; N39.0 Urinary tract infection, site not specified; E87.3 Alkalosis; D64.9 Anemia, unspecified; J96.22 Acute and chronic respiratory failure with hypercapnia; Z66 Do not resuscitate; K21.9 Gastro-esophageal reflux disease without esophagitis; G31.84 Mild cognitive impairment of uncertain or unknown etiology; S09.90XA Unspecified injury of head, initial encounter; Z88.1 Allergy status to other antibiotic agents; E03.9 Hypothyroidism, unspecified; F32.A Depression, unspecified; I10 Essential (primary) hypertension; Z99.81 Dependence on supplemental oxygen; E78.5 Hyperlipidemia, unspecified; F41.8 Other specified anxiety disorders; R73.9 Hyperglycemia, unspecified; F17.210 Nicotine dependence, cigarettes, uncomplicated; Z79.899 Other long term (current) drug therapy; Z79.52 Long term (current) use of systemic steroids; Z79.891 Long term (current) use of opiate analgesic; Z79.51 Long term (current) use of inhaled steroids; Z79.890 Hormone replacement therapy; Z98.1 Arthrodesis status; Z90.710 Acquired absence of both cervix and uterus; Z90.89 Acquired absence of other organs; Z90.49 Acquired absence of other specified parts of digestive tract; Z98.41 Cataract extraction status, right eye; Z98.42 Cataract extraction status, left eye; Z98.890 Other specified postprocedural states; Z71.6 Tobacco abuse counseling; Z28.21 Immunization not carried out because of patient refusal
CPT/HCPCS: 36415; 70450; 71045; 72125; 80048; 80053; 81001; 82803; 82947; 83036; 83735; 83880; 85025; 87086; 87637; 93005; 93010; 94640; 94664; 94760; 94762; 96365; 96375; 97110; 97161; 97166; 97530; 97535; 99285-25; A9270; J0456; J0696; J1650; J1885; J2919; J7030; J7050